=== PATIENT | male | born 1990 | race Two or more races ===

== ENCOUNTER 2024-03-10 12:25 | Inpatient (IN) | payer OTHER ==
[~2024-03-10] VITALS: Ht 177.8 cm; Wt 138.5 kg
--- NOTE | 2024-03-10 13:48 | ED.PDOC ---
General HPI Comments A 33Y M PRESENTS TO ED FOR CHIEF COMPLAINT RT TESTICLE PAIN X2 MONTHS WITH ENLARGEMENT. PT STATES HE STARTED HAVING RIGHT TESTICLE SWELLING AND ENLARGEMENT 2 MONTHS AGO. IT STARTED A SMALL LUMP ON RIGHT TESTICLE REGION AND BECAME BIGGER DAY AND DAY. TODAY, HE C/O RIGHT TESTICLE PAIN AND SWELLING INCREASED. WALKING INCREASES RIGHT TESTICLE PAIN. PT DENIES FEVER, URINARY SYMPTOMS, CHEST PAIN, AND SOB, NAUSEA, VOMITING AND OTHER COMPLAINTS. NO OTHER SYMPTOMS REPORTED. PATIENT IS ALERT, ORIENTED X 4, AND HAS STEADY GAIT. Chief Complaint: Testicle Pain Time Seen by MD: :24 Primary Care Provider: NONE Reviewed notes: Nurses Notes, Medications, Allergies Allergies: Coded Allergies: NO KNOWN ALLERGIES (Unverified , 03/10/24) Information Source: Patient Mode of Arrival: Ambulatory Severity: Moderate Inability to void: None Timing: Months Duration: Since onset Prehospital treatment: None Onset: Spontaneous Symptoms: None History of: None Location: None Location male: R Scrotum Penile discharge: None Modifying factors: None associated signs and symptoms: None Past Medical History PAST MEDICAL HISTORY: Denies Surgical History: Denies all surgeries Family History Family History: Unknown Social History Smoker: Non-Smoker Alcohol: Denies ETOH Use Drugs: Denies Drug Use Lives In: Home Constitutional: denies: chills, diaphoresis, fatigue, fever, malaise, sweats, weakness, others EENTM: denies: blurred vision, double vision, ear bleeding, ear discharge, ear drainage, ear pain, ear ringing, eye pain, eye redness, hearing loss, mouth pain, mouth swelling, nasal discharge, nose bleeding, nose congestion, nose pain, photophobia, tearing, throat pain, throat swelling, voice changes, others Respiratory: denies: cough, hemoptysis, orthopnea, SOB at rest, shortness of breath, SOB with excertion, stridor, wheezing, others Cardiovascular: denies: chest pain, dizzy spells, diaphoresis, Dyspnea on exertion, edema, irregular heart beat, left arm pain, lightheadedness, palpitations, PND, syncope, others Gastrointestinal: denies: abdomen distended, abdominal pain, blood streaked bowels, constipated, diarrhea, dysphagia, difficulty swallowing, hematemesis, melena, nausea, poor appetite, poor fluid intake, rectal bleeding, rectal pain, vomiting, others Genitourinary: reports: testicle pain, testicle swelling; denies: burning, dysuria, flank pain, frequency, hematuria, incontinence, penile discharge, penile sore, pain, urgency, others Neurological: denies: dizziness, fainting, headache, left sided numbness, left sided weakness, numbness, paresthesia, pre-existing deficit, right sided numbness, right sided weakness, seizure, speech problems, tingling, tremors, weakness, others Musculoskeletal: denies: back pain, gout, joint pain, joint swelling, muscle pain, muscle stiffness, neck pain, others Integumetry: reports: lumps (RIGHT TESTICLE ); denies: bruises, change in color, change in hair/nails, dryness, laceration, lesions, rash, wounds, others Allergic/Immunocompromised: denies: Difficulty Healing, Frequent Infections, Hives, Itching, others Hematologic/Lymphatic: denies: anemia, blood clots, easy bleeding, easy bruising, swollen glands, others Endocrine: denies: excessive hunger, excessive sweating, excessive thirst, excessive urination, flushing, intolerance to cold, intolerance to heat, unexplained weight gain, unexplained weight loss, others Psychiatric: denies: anxiety, bipolar disorder, depression, hopeless, panic disorder, schizophrenia, sleepless, suicidal, others All Other Systems: Reviewed and Negative Physical Exam General Appearance: No Apparent Distress, Obese HEENT: Normal ENT Inspection, PERRL/EOMI, Pharynx Normal, TMs Normal Neck: Full Range of Motion, Non-Tender, Normal, Normal Inspection Respiratory: Chest Non-Tender, Lungs Clear, No Accessory Muscle Use, No Respiratory Distress, Normal Breath Sounds Cardiovascular: No Edema, No JVD, No Murmur, No Gallop, Normal Peripheral Pulses, Regular Rate/Rhythm Breast Exam: Deferred Gastrointestinal: No Organomegaly, Non Tender, No Pulsatile Mass, Normal Bowel Sounds, Soft Genitalia: Scrotum (TENDERNESS AND SWELLING ON RIGHT SCROTUM. ), Testicle (TENDERNESS, SWELLING AND HARDNESS ON RIGHT TESTICLE, NO TESTICLE TORSION, BILATERAL TESTICLE DESCENDING. +RIGHT TESTICLE MASS. ) Pelvic: Normal External Exam Rectal: Deferred Extremities: No calf tenderness, Normal capillary refill, Normal inspection, Normal range of motion, Non-tender, No pedal edema Musculoskeletal : Apperance: Normal Neurologic: Alert, sales and marketing representative II-XII nml as Tested, No Motor Deficits, Normal Affect, Normal Mood, No Sensory Deficits Cerebellar Function: Normal Reflexes: Normal Skin: Dry, Normal Color, Warm Peripheral Pulses: 2+ carotid (R), 2+ carotid (L) Lymphatic: No Adenopathy Was a procedure done? Was a procedure done?: No Differential Diagnosis Kidney stone (Female): N/A Kidney stone (Male): N/A Penile/Scrotal: Epidiymitis, Hydrocele, Testicular Torsion, Urolithiasis, Other (RIGHT TESTICLE MASS) Urinary Problem (Male): N/A Urinary Problem (Female): N/A X-Ray, Labs, Meds, VS Vital Signs Date Time Temp Pulse Resp B/P (MAP) Pulse Ox O2 Delivery O2 Flow Rate FiO2 03/10/24 13:36 98.4 102 16 138/97 (111) 98 98.4 03/10/24 13:36 102 16 98 Room Air 03/10/24 12:46 98.4 102 16 138/97 (111) 98 Lab Test 03/10/24 15:37 Range/Units White Blood Count 13.9 H 4.4-10.8 10^3/uL Red Blood Count 5.41 4.5-5.90 10^6/uL Hemoglobin 16.9 13.5-17.5 g/dL Hematocrit 48.4 41.0-53.0 % Mean Corpuscular Volume 89.5 80.0-100.0 fL Mean Corpuscular Hemoglobin 31.2 28.0-32.0 pg Mean Corpuscular Hemoglobin Concent 34.8 32.0-36.0 g/dL Red Cell Distribution Width 13.3 11.8-14.3 % Platelet Count 335 140-450 10^3/uL Mean Platelet Volume 8.2 6.9-10.8 fL Neutrophils (%) (Auto) 81.8 H 37.0-80.0 % Lymphocytes (%) (Auto) 13.4 10.0-50.0 % Monocytes (%) (Auto) 4.4 0.0-12.0 % Eosinophils (%) (Auto) 0.1 0.0-7.0 % Basophils (%) (Auto) 0.3 0.0-2.0 % Neutrophils # (Auto) 11.4 H 1.6-8.6 10 ^3/uL Lymphocytes # (Auto) 1.9 0.4-5.4 10 ^3/uL Monocytes # (Auto) 0.6 0-1.3 10 ^3/uL Eosinophils # (Auto) 0 0-0.8 10 ^3/uL Basophils # (Auto) 0 0-0.2 10 ^3/uL Nucleated Red Blood Cells 0.1 % Sodium Level 138 136-145 mmol/L Potassium Level 3.6 3.5-5.1 mmol/L Chloride Level 104 98-107 mmol/L Carbon Dioxide Level 28 20-31 mmol/L Anion Gap 6 5-15 Blood Urea Nitrogen 10 9-23 mg/dL Creatinine 1.01 0.700-1.30 mg/dL Glomerular Filtration Rate Calc 99 >90 mL/min BUN/Creatinine Ratio 9.9 L 10.0-20.0 Serum Glucose 121 H 74-106 mg/dL Calcium Level 9.6 8.7-10.4 mg/dL C-Reactive Protein High Sensitivity 2.03 H <1.0 mg/dL Tumor Marker Alpha Fetoprotein Pending Beta HCG, Quantitative Pending Current Medications Medications (Trade) Dose Ordered Sig/Domonique Route Start Time Stop Time Status Last Admin Sodium Chloride 1,000 ml @ 1,000 mls/hr Q1H ONCE IV 03/10/24 15:30 03/10/24 16:29 DC 03/10/24 15:46 Ketorolac Tromethamine (Toradol Injection) 30 mg ONCE ONCE IV 03/10/24 15:30 03/10/24 15:31 MT 03/10/24 17:19 [place] [id number] Ph: [phone] DIAGNOSTIC IMAGING Diagnostic Imaging Report : [id number] Signed PATIENT: CHICHI BAILEY ACCT: [id number] UNIT: [id number] : 1990 LOC: ER ROOM / BED: / AGE / SEX: 33 / M ADM STATUS: REG ER SERVICE [id number] ORDERING PHYSICIAN: BETTINA VILLA PROCEDURE(s): TESUS - TESTICULAR ULTRASOUND REASON: RIGHT TESTICLE SWELLING X 2 MONTHS ORDER NUMBER(s): [id number], ACCESSION NUMBER(s): [id number] Procedure: US TESTICULAR ULTRASOUND Study Date and Requested Time: 03/10/2024 02:01 PM History: RIGHT TESTICLE SWELLING X 2 MONTHS Comparison: None Technique: Multiple high-resolution grayscale images of scrotal contents obtained. Color and spectral Doppler used for evaluation of testicular blood flow. Findings: No normal right testicular or epididymal tissue is noted. Over the expected area of the right testicle , there is a 6.1 x 4.5 x 6.3 cm heterogeneous mainly solid structure with internal cystic areas which demonstrates some vascularity. Left testicle measures 3.3 x 2.1 x 2.4 cm with homogenous echotexture and normal contours. Multiple punctate echogenic foci are noted within the left testicle. Left epididymal head measures 1.4 cm and is within normal limits. Normal left testicular and epididymal color Doppler flow. No evidence of hydrocele. Impression: No normal right epididymal or testicular tissue is noted. Over the expected area of the right testicle , there is a 6.1 x 4.5 x 6.3 cm heterogeneous mainly solid structure with internal cystic areas which demonstrates some vascularity concerning for possible mass. Left testicular microlithiasis. ATED BY: DARA NUNES DO DICTATED DATE/TIME: 03/10/241444 SIGNED BY: DARA NUNES DO SIGNED DATE/TIME: 03/10/241444 CC: X-Ray, Labs, Meds, VS Comment COURSE: EXTERNAL MEDICAL RECORDS REVIEWED: [NONE] INDEPENDENT HISTORIANS: [NONE] SOCIAL DETERMINANTS OF HEALTH: [NONE] LABS ORDERED: CBC, BMP, CRP, UA REVIEWED AND INTERPRETED RESULTS: NORMAL IMAGING ORDERED: TESTICULAR U/S U/S INTERPRETED BY ME. PT HAS RT TESTICULAR MASS. TREATMENTS ORDERED: O.9 NS AND TORADOL 30MG IVP PROCEDURES PERFORMED: NONE CRITICAL CARE TIME: NONE I HAVE DISCUSSED THE PATIENT WITH THE ATTENDING PHYSICIAN DR. DON OLIVEROS AND SHE AGREES WITH THE PATIENT'S PLAN OF CARE. GIVEN THE HISTORY AND PRESENT ILLNESS OF THE PATIENT, AFTER REVIEWING IMAGING AND COURSE OF TREATMENT AD MINISTERED DURING THEIR ED VISIT WILL ADMIT PATIENT FOR FURTHER MONITORING OF TESTICULAR MASS AND PLACE UROLOGY CONSULT. Time of 1ST Reevaluation: 13:54 Reevaluation 1ST: Unchanged Patient Education/Counseling: Diagnosis, Treatment Family Education/Counseling: Diagnosis, Treatment Departure 1 Departure Time of Disposition: 15:16 Impression: Primary Impression: Mass of right testicle Additional Impression: Testicular microlithiasis Disposition: ADMITTED INPATIENT Condition: Serious Critical Care Note Critical Care Time?: No Stability Stability form required: Yes Unstable for transfer: Requires medication, ED Physician Assesment, Possible rapid decline Heart Score Heart Score: Heart Score Response (Comments) Value History N/A 0 EKG N/A 0 Age N/A 0 Risk Factors N/A 0 Troponin N/A 0 Total 0 I personally scribed for BETTINA VILLA PA ([email or web address]) on 03/10/24 at 13:48. Electronically submitted by Carla Donald ([email or web address]). I personally scribed for BETTINA VILLA PA ([email or web address]) on 03/10/24 at 14:57. Electronically submitted by Carla Donald ([email or web address]). I personally scribed for PARVIN VILLAA PA ([email or web address]) on 03/10/24 at 15:00. Electronically submitted by Carla Donald ([email or web address]). I personally scribed for PARVIN VILLAA PA ([email or web address]) on 03/10/24 at 15:01. Electronically submitted by Carla Donald ([email or web address]). I personally scribed for PARVIN VILLAA PA ([email or web address]) on 03/10/24 at 15:18. Electronically submitted by Carla Donald ([email or web address]). I personally scribed for ALLENPARVIN EwingA PA ([email or web address]) on 03/10/24 at 17:36. Electronically submitted by Carla Donald ([email or web address]). BETTINA VILLA PA Mar 10, 2024 13:48
--- NOTE | 2024-03-10 14:48 | DVH ---
Procedure: US TESTICULAR ULTRASOUND Study Date and Requested Time: 03/10/2024 02:01 PM History: RIGHT TESTICLE SWELLING X 2 MONTHS Comparison: None Technique: Multiple high-resolution grayscale images of scrotal contents obtained. Color and spectral Doppler used for evaluation of testicular blood flow. Findings: No normal right testicular or epididymal tissue is noted. Over the expected area of the right testicl e , there is a 6.1 x 4.5 x 6.3 cm heterogeneous mainly solid structure with internal cystic areas whi ch demonstrates some vascularity. Left testicle measures 3.3 x 2.1 x 2.4 cm with homogenous echotexture and normal contours. Multiple p unctate echogenic foci are noted within the left testicle. Left epididymal head measures 1.4 cm and i s within normal limits. Normal left testicular and epididymal color Doppler flow. No evidence of hydrocele. Impression: No normal right epididymal or testicular tissue is noted. Over the expected area of the right testicle , there is a 6.1 x 4.5 x 6.3 cm heterogeneous mainly indra id structure with internal cystic areas which demonstrates some vascularity concerning for possible m ass. Left testicular microlithiasis.
[2024-03-10] MEDS: SODIUM CHLORIDE 0.9% 1,000 ML IV ONE (15:46)
[2024-03-10 15:55] LABS: Basophils # (auto) 0 10 ^3/uL (0-0.2); Basophils % (auto) 0.3 % (0.0-2.0); Eosinophils # (auto) 0 10 ^3/uL (0-0.8); Eosinophils % (auto) 0.1 % (0.0-7.0); Hematocrit 48.4 % (41.0-53.0); Hemoglobin 16.9 g/dL (13.5-17.5); Lymphocytes # (auto) 1.9 10 ^3/uL (0.4-5.4); Lymphocytes % (auto) 13.4 % (10.0-50.0); Mean Corpuscular Hemoglobin 31.2 pg (28.0-32.0); Mean Corpuscular Hgb Conc. 34.8 g/dL (32.0-36.0); Mean Corpuscular Volume 89.5 fL (80.0-100.0); Monocytes # (auto) 0.6 10 ^3/uL (0-1.3); Monocytes % (auto) 4.4 % (0.0-12.0); Neutrophils # (auto) 11.4 10 ^3/uL (1.6-8.6); Neutrophils % (auto) 81.8 % (37.0-80.0); Nucleated Red Blood Cells % 0.1 %; Platelet Count (auto) 335 10^3/uL (140-450); Red Blood Cells 5.41 10^6/uL (4.5-5.90); Red Cell Distribution Width 13.3 % (11.8-14.3); White Blood Cell 13.9 10^3/uL (4.4-10.8)
[2024-03-10 16:04] LABS: Chloride 104 mmol/L (98-107); Potassium 3.6 mmol/L (3.5-5.1); Sodium 138 mmol/L (136-145)
[2024-03-10 16:05] LABS: Anion Gap 6 (5-15); Carbon Dioxide 28 mmol/L (20-31)
[2024-03-10 16:06] LABS: Calcium 9.6 mg/dL (8.7-10.4)
[2024-03-10 16:10] LABS: BUN/Creatinine Ratio 9.9 (10.0-20.0); Blood Urea Nitrogen 10 mg/dL (9-23)
[2024-03-10 16:22] LABS: CRP High Sensitivity 2.03 mg/dL (<1.0); Glucose 121 mg/dL (74-106)
--- NOTE | 2024-03-10 16:29 | DVHHP2 ---
History of Present Illness Reason for Visit: Right testicular pain History of Present Illness Giovanni Sun is a 33-year-old male with no past medical history who presents to the ED today for testicular pain x 2 months. Patient reports that it started 2 months with a hard spot on his testicle and it grew rapidly from there. Patient states that this pain is an 8/10 and it is throbbing and sharp in nature and currently radiates to his abdomen.. Patient reports that he does not see a PCP. He denies fever, chills, chest pain, shortness of breath dysuria, frequency, hematuria, burning, foul odor, nausea, vomiting, and diarrhea. Past Surgical History: None Family History: None Smoke: <1 pack per day ALCOHOL: rare Drugs: Marijuana Lives: with Family Domestic Violence: Neg Review of Systems Constitutional: No: Fever, Chills, Sweats, Weakness, Malaise, Other Eyes: No: Pain, Vision change, Conjunctivae inflammation, Eyelid inflammation, Other, Redness ENT: No: Ear pain, Ear discharge, Nose pain, Nose discharge, Nose congestion, Mouth pain, Mouth swelling, Throat pain, Throat swelling, Other Respiratory: No: Cough, Dry, Shortness of breath, SOB with excertion, Wheezing, Hemoptysis, Pleuritic Pain, Sputum, Wheezing, Other Cardiovascular: No: Chest Pain, Palpitations, Orthopnea, Paroxysmal Noc. Dyspnea, Edema, Lt Headedness, Other Gastrointestinal: No: Nausea, Vomiting, Abdominal Pain, Diarrhea, Constipation, Melena, Hematochezia, Other Genitourinary: No Dysuria, No Frequency, No Incontinence, No Hematuria, No Retention; Other (Right testicular pain) Musculoskeletal: No: other, neck pain, shoulder pain, arm pain, back pain, hand pain, leg pain, foot pain Skin: No: Rash, Lesions, Jaundice, Bruising, Other Neurological: No: Weakness, Numbness, Incoordination, Change in speech, Confusion, Seizures, Other Allergies: Coded Allergies: NO KNOWN ALLERGIES (Unverified , 03/10/24) Exam Vital Signs Vital Signs Date Time Temp Pulse Resp B/P (MAP) Pulse Ox O2 Delivery O2 Flow Rate FiO2 03/10/24 13:36 98.4 102 16 138/97 (111) 98 98.4 03/10/24 13:36 Room Air Exam Patient's right testicle about the size of a ione General Appearance: Alert, Oriented X3, Cooperative, mild distress HEENT: Atraumatic, PERRLA, EOMI, Mucous membr. moist/pink Respiratory: Clear to auscultation, Normal air movement Cardiovascular: Regular rate, Normal S1, Normal S2, No murmurs Abdominal: Normal bowel sounds, Soft, No tenderness, No hepatospenomegaly, No masses Extremities: No clubbing, No cyanosis, No edema, Normal pulses, No tenderness/swelling Skin: No rashes, No breakdown, No significant lesion Neuro: Normal gait, Normal speech, Strength at 5/5 X4 ext, Normal tone, Sensation intact Psych/Mental Status: Mental status NL, Mood NL Labs/Xrays Labs Test 03/10/24 15:37 Range/Units White Blood Count 13.9 H 4.4-10.8 10^3/uL Red Blood Count 5.41 4.5-5.90 10^6/uL Hemoglobin 16.9 13.5-17.5 g/dL Hematocrit 48.4 41.0-53.0 % Mean Corpuscular Volume 89.5 80.0-100.0 fL Mean Corpuscular Hemoglobin 31.2 28.0-32.0 pg Mean Corpuscular Hemoglobin Concent 34.8 32.0-36.0 g/dL Red Cell Distribution Width 13.3 11.8-14.3 % Platelet Count 335 140-450 10^3/uL Mean Platelet Volume 8.2 6.9-10.8 fL Neutrophils (%) (Auto) 81.8 H 37.0-80.0 % Lymphocytes (%) (Auto) 13.4 10.0-50.0 % Monocytes (%) (Auto) 4.4 0.0-12.0 % Eosinophils (%) (Auto) 0.1 0.0-7.0 % Basophils (%) (Auto) 0.3 0.0-2.0 % Neutrophils # (Auto) 11.4 H 1.6-8.6 10 ^3/uL Lymphocytes # (Auto) 1.9 0.4-5.4 10 ^3/uL Monocytes # (Auto) 0.6 0-1.3 10 ^3/uL Eosinophils # (Auto) 0 0-0.8 10 ^3/uL Basophils # (Auto) 0 0-0.2 10 ^3/uL Nucleated Red Blood Cells 0.1 % Sodium Level 138 136-145 mmol/L Potassium Level 3.6 3.5-5.1 mmol/L Chloride Level 104 98-107 mmol/L Carbon Dioxide Level 28 20-31 mmol/L Anion Gap 6 5-15 Blood Urea Nitrogen 10 9-23 mg/dL Creatinine 1.01 0.700-1.30 mg/dL Glomerular Filtration Rate Calc 99 >90 mL/min BUN/Creatinine Ratio 9.9 L 10.0-20.0 Serum Glucose 121 H 74-106 mg/dL Calcium Level 9.6 8.7-10.4 mg/dL C-Reactive Protein High Sensitivity 2.03 H <1.0 mg/dL Procedure: US TESTICULAR ULTRASOUND Study Date and Requested Time: 03/10/2024 02:01 PM History: RIGHT TESTICLE SWELLING X 2 MONTHS Findings: No normal right testicular or epididymal tissue is noted. Over the expected area of the right testicle , there is a 6.1 x 4.5 x 6.3 cm heterogeneous mainly solid structure with internal cystic areas which demonstrates some vascularity. Left testicle measures 3.3 x 2.1 x 2.4 cm with homogenous echotexture and normal contours. Multiple punctate echogenic foci are noted within the left testicle. Left epididymal head measures 1.4 cm and is within normal limits. Normal left testicular and epididymal color Doppler flow. No evidence of hydroc sharla. Impression: No normal right epididymal or testicular tissue is noted. Over the expected area of the right testicle , there is a 6.1 x 4.5 x 6.3 cm heterogeneous mainly solid structure with internal cystic areas which demonstrates some vascularity concerning for possible mass. Left testicular microlithiasis. Exam: CT CT AB PEL WO CON-NO ORAL OR IV History: abd pain Comparison Study: None available at time of dictation. TECHNIQUE: Multidetector CT of the abdomen was performed from lung bases to pubic symphysis. Imaging was performed without IV contrast. Axial, coronal and sagittal multiplanar reformats were obtained from the axial data set by the technologist. Radiation Dose Information: CT Dose: CTDI volume is 26.77 mGy. Dose-length product is 1619.61 mGy*cm FINDINGS: Evaluation of solid organs is limited due to lack of intravenous contrast use. Findings: Lung Bases: No acute or significant lung base finding. Normal heart size. No pleural or pericardial effusion. Liver: The liver is normal in size. No focal lesions. CT findings consistent with hepatic steatosis Gallbladder and Biliary Tree: Noncalcified gallstones in the gallbladder. Spleen: Unremarkable Pancreas: The pancreas is grossly normal in appearance. Adrenal Glands: Unremarkable Kidneys: Punctate nonobstructing calculus left kidney Bladder: Grossly unremarkable for degree of distention. Bowel: The stomach is grossly normal in appearance. Small bowel and colon are normal in caliber and distribution. The appendix is not visualized; however, no secondary findings of acute appendicitis identified. Ascites: Absent Lymphadenopathy: No mesenteric, retroperitoneal or periportal lymphadenopathy. Abdominal Wall and Mesentery: Unremarkable. Vasculature: The visualized abdominal aorta is normal in size and caliber. Evaluation of abdominal and pelvic vessels is limited due to lack of intravenous contrast. Pelvic Organs: Unremarkable Musculoskeletal: No aggressive focal bony lesions, acute fractures or dislocation. Soft tissues: Unremarkable IMPRESSION: 1. Findings suggesting hepatic steatosis. 2. Multiple noncalcified gallstones 3. Punctate nonobstructing calculus left kidney 4. No free air no free fluid 5. No findings of bowel obstruction. Assessment/Plan Assessment/Plan Assessment/plan: Right testicular mass Left testicular microlithiasis urology cx pain management ua labs am labs ct a/p IV abx Obesity Discussed lifestyle modifications, diet, and exercise Hepatic steatosis Noncalcified gallstones Left kidney punctate nonobstructing calculus f/u outpatient with pcp FEN/PPX IVf NPO PUD ppx not indicated no hx of GERD hold DVT ppx for poss sx Discussed plan of care with patient and nurse Admit to med surg Plan discussed with: Patient My Orders Orders - KATHY GUO Procedure Category Date Status Time * Urology Consult CONS 03/10/24 Transmitted 16:24 Date of Service: Mar 10, 2024 Billing Provider: KATHY GUO Common Visit Codes: [id number] INP/OBS CARE (MOD) KATHY GUO Mar 10, 2024 16:29
[2024-03-10] MEDS ORDERED: MORPHINE SULFATE INJ 2 MG/ml SYRG IV PRN (16:45)
[2024-03-10] MEDS ORDERED: ACETAMINOPHEN 325 MG TAB PO PRN (16:45)
[2024-03-10] MEDS ORDERED: HYDROcodone-ACET 5/325MG TAB PO PRN (16:45)
[2024-03-10] MEDS ORDERED: DOCUSATE SOD 100 MG CAP PO PRN (16:45)
[2024-03-10] MEDS: SODIUM CHLORIDE 0.9% 1,000 ML IV SCH (17:19)
[2024-03-10] MEDS: KETOROLAC TROMETH 30 MG/ML 1ML VIAL IV ONE (17:19)
--- NOTE | 2024-03-10 17:59 | DVHINCON2 ---
Date of service: Mar 10, 2024 Referring Physician ER Reason for Consultation Right testicular mass and testicular pain History of Present Illness 33Y M PRESENTS TO ED FOR CHIEF COMPLAINT RT TESTICLE PAIN X2 MONTHS WITH ENLARGEMENT. PT STATES HE STARTED HAVING RIGHT TESTICLE SWELLING AND ENLARGEMENT 2 MONTHS AGO. IT STARTED A SMALL LUMP ON RIGHT TESTICLE REGION AND BECAME BIGGER DAY AND DAY. TODAY, HE C/O RIGHT TESTICLE PAIN AND SWELLING INCREASED. WALKING INCREASES RIGHT TESTICLE PAIN. PT DENIES FEVER, URINARY SYMPTOMS, CHEST PAIN, AND SOB, NAUSEA, VOMITING AND OTHER COMPLAINTS. NO OTHER SYMPTOMS REPORTED. PATIENT IS ALERT, ORIENTED X 4, AND HAS STEADY GAIT. Chief Complaint: Testicle Pain Primary Care Provider: NONE Reviewed notes: Nurses Notes, Medications, Allergies Allergies: Coded Allergies: NO KNOWN ALLERGIES (Unverified , 03/10/24) Information Source: Patient Mode of Arrival: Ambulatory Severity: Moderate Inability to void: None Timing: Months Duration: Since onset Prehospital treatment: None Onset: Spontaneous Symptoms: None History of: None Location: None Location male: R Scrotum Penile discharge: None Modifying factors: None associated signs and symptoms: None Past Medical History Denies Past Surgical History Denies all surgeries Allergies: Coded Allergies: NO KNOWN ALLERGIES (Unverified , 03/10/24) Current Medications Current Medications Medications (Trade) Dose Ordered Sig/[place] Route PRN Reason Start Time Stop Time Status Last Admin Sodium Chloride 1,000 ml @ 100 mls/hr Q10H IV 03/10/24 16:45 03/10/24 17:19 Acetaminophen/ Hydrocodone Bitart ([place] 5/325MG Tab) 1 tab Q4HP PRN PO MODERATE PAIN (4-6 PAIN SCALE) 03/10/24 16:45 Ondansetron HCl (Zofran) 4 mg Q4HP PRN IV NAUSEA / VOMITING 03/10/24 16:45 Docusate Sodium (Colace Capsule) 100 mg BIDPRN PRN PO FOR CONSTIPATION 03/10/24 16:45 Acetaminophen (Tylenol Tablet) 650 mg Q6HP PRN PO PAIN SCALE 1-3 OR TEMP>100.4 03/10/24 16:45 Morphine Sulfate 2 mg Q4HPRN PRN IV SEVERE PAIN (7-10 PAIN SCALE) 03/10/24 16:45 Ceftriaxone Sodium 50 ml @ 100 mls/hr DAILY@09 IV 03/11/24 09:00 Review of Systems Constitutional: denies: chills, diaphoresis, fatigue, fever, malaise, sweats, weakness, others EENTM: denies: blurred vision, double vision, ear bleeding, ear discharge, ear drainage, ear pain, ear ringing, eye pain, eye redness, hearing loss, mouth pain, mouth swelling, nasal discharge, nose bleeding, nose congestion, nose pain, photophobia, tearing, throat pain, throat swelling, voice changes, others Respiratory: denies: cough, hemoptysis, orthopnea, SOB at rest, shortness of breath, SOB with excertion, stridor, wheezing, others Cardiovascular: denies: chest pain, dizzy spells, diaphoresis, Dyspnea on exertion, edema, irregular heart beat, left arm pain, lightheadedness, palpitations, PND, syncope, others Gastrointestinal: denies: abdomen distended, abdominal pain, blood streaked bowels, constipated, diarrhea, dysphagia, difficulty swallowing, hematemesis, melena, nausea, poor appetite, poor fluid intake, rectal bleeding, rectal pain, vomiting, others Genitourinary: reports: testicle pain, testicle swelling; denies: burning, dysuria, flank pain, frequency, hematuria, incontinence, penile discharge, penile sore, pain, urgency, others Neurological: denies: dizziness, fainting, headache, left sided numbness, left sided weakness, numbness, paresthesia, pre-existing deficit, right sided numbness, right sided weakness, seizure, speech problems, tingling, tremors, weakness, others Musculoskeletal: denies: back pain, gout, joint pain, joint swelling, muscle pain, muscle stiffness, neck pain, others Integumetry: reports: lumps (RIGHT TESTICLE ); denies: bruises, change in color, change in hair/nails, dryness, laceration, lesions, rash, wounds, others Allergic/Immunocompromised: denies: Difficulty Healing, Frequent Infections, Hives, Itching, others Hematologic/Lymphatic: denies: anemia, blood clots, easy bleeding, easy bruising, swollen glands, others Endocrine: denies: excessive hunger, excessive sweating, excessive thirst, excessive urination, flushing, intolerance to cold, intolerance to heat, unexplained weight gain, unexplained weight loss, others Psychiatric: denies: anxiety, bipolar disorder, depression, hopeless, panic disorder, schizophrenia, sleepless, suicidal, others All Other Systems: Reviewed and Negative Vital Signs Vital Signs Date Time Temp Pulse Resp B/P (MAP) Pulse Ox O2 Delivery O2 Flow Rate FiO2 03/10/24 13:36 98.4 102 16 138/97 (111) 98 98.4 03/10/24 13:36 Room Air Physical Exam General Appearance: No Apparent Distress, Obese HEENT: Normal ENT Inspection, PERRL/EOMI, Pharynx Normal, TMs Normal Neck: Full Range of Motion, Non-Tender, Normal, Normal Inspection Respiratory: Chest Non-Tender, Lungs Clear, No Accessory Muscle Use, No Respiratory Distress, Normal Breath Sounds Cardiovascular: No Edema, No JVD, No Murmur, No Gallop, Normal Peripheral Pulses, Regular Rate/Rhythm Breast Exam: Deferred Gastrointestinal: No Organomegaly, Non Tender, No Pulsatile Mass, Normal Bowel Sounds, Soft Genitalia: Scrotum (TENDERNESS AND SWELLING ON RIGHT SCROTUM. ), Testicle (TENDERNESS, SWELLING AND HARDNESS ON RIGHT TESTICLE, NO TESTICLE TORSION, BILATERAL TESTICLE DESCENDING. +RIGHT TESTICLE MASS. ) Extremities: No calf tenderness, Normal capillary refill, Normal inspection, Normal range of motion, Non-tender, No pedal edema Musculoskeletal : Apperance: Normal Neurologic: Alert, computer technologist II-XII nml as Tested, No Motor Deficits, Normal Affect, Normal Mood, No Sensory Deficits Cerebellar Function: Normal Reflexes: Normal Skin: Dry, Normal Color, Warm Peripheral Pulses: 2+ carotid (R), 2+ carotid (L) Lymphatic: No Adenopathy Labs/Diagnostic Data Labs Test 03/10/24 15:37 Range/Units White Blood Count 13.9 H 4.4-10.8 10^3/uL Red Blood Count 5.41 4.5-5.90 10^6/uL Hemoglobin 16.9 13.5-17.5 g/dL Hematocrit 48.4 41.0-53.0 % Mean Corpuscular Volume 89.5 80.0-100.0 fL Mean Corpuscular Hemoglobin 31.2 28.0-32.0 pg Mean Corpuscular Hemoglobin Concent 34.8 32.0-36.0 g/dL Red Cell Distribution Width 13.3 11.8-14.3 % Platelet Count 335 140-450 10^3/uL Mean Platelet Volume 8.2 6.9-10.8 fL Neutrophils (%) (Auto) 81.8 H 37.0-80.0 % Lymphocytes (%) (Auto) 13.4 10.0-50.0 % Monocytes (%) (Auto) 4.4 0.0-12.0 % Eosinophils (%) (Auto) 0.1 0.0-7.0 % Basophils (%) (Auto) 0.3 0.0-2.0 % Neutrophils # (Auto) 11.4 H 1.6-8.6 10 ^3/uL Lymphocytes # (Auto) 1.9 0.4-5.4 10 ^3/uL Monocytes # (Auto) 0.6 0-1.3 10 ^3/uL Eosinophils # (Auto) 0 0-0.8 10 ^3/uL Basophils # (Auto) 0 0-0.2 10 ^3/uL Nucleated Red Blood Cells 0.1 % Sodium Level 138 136-145 mmol/L Potassium Level 3.6 3.5-5.1 mmol/L Chloride Level 104 98-107 mmol/L Carbon Dioxide Level 28 20-31 mmol/L Anion Gap 6 5-15 Blood Urea Nitrogen 10 9-23 mg/dL Creatinine 1.01 0.700-1.30 mg/dL Glomerular Filtration Rate Calc 99 >90 mL/min BUN/Creatinine Ratio 9.9 L 10.0-20.0 Serum Glucose 121 H 74-106 mg/dL Calcium Level 9.6 8.7-10.4 mg/dL C-Reactive Protein High Sensitivity 2.03 H <1.0 mg/dL PATIENT: CHICHI BAILEY ACCT: [id number] UNIT: [id number] : 1990 LOC: ER ROOM / BED: / AGE / SEX: 33 / M ADM STATUS: REG ER SERVICE [id number] ORDERING PHYSICIAN: BETTINA VILLA PROCEDURE(s): TESUS - TESTICULAR ULTRASOUND REASON: RIGHT TESTICLE SWELLING X 2 MONTHS ORDER NUMBER(s): [id number], ACCESSION NUMBER(s): [id number] Procedure: US TESTICULAR ULTRASOUND Study Date and Requested Time: 03/10/2024 02:01 PM History: RIGHT TESTICLE SWELLING X 2 MONTHS Comparison: None Technique: Multiple high-resolution grayscale images of scrotal contents obtained. Color and spectral Doppler used for evaluation of testicular blood flow. Findings: No normal right testicular or epididymal tissue is noted. Over the expected area of the right testicle , there is a 6.1 x 4.5 x 6.3 cm heterogeneous mainly solid structure with internal cystic areas which demonstrates some vascularity. Left testicle measures 3.3 x 2.1 x 2.4 cm with homogenous echotexture and normal contours. Multiple punctate echogenic foci are noted within the left testicle. Left epididymal head measures 1.4 cm and is within normal limits. Normal left testicular and epididymal color Doppler flow. No evidence of hydrocele. Impression: No normal right epididymal or testicular tissue is noted. Over the expected area of the right testicle , there is a 6.1 x 4.5 x 6.3 cm heterogeneous mainly solid structure with internal cystic areas which demonstrates some vascularity concerning for possible mass. Left testicular microlithiasis. ATED BY: DARA NUNES DO DICTATED DATE/TIME: 03/10/241444 SIGNED BY: DARA NNUES DO SIGNED DATE/TIME: 03/10/241444 Assessment Right testicular mass suspicious for malignancy Plan/Recommendation We will obtain serum tumor markers Proceed with right radical orchiectomy as soon as possible 0700 03/11/24. NPO after 11 PM Plan discussed with: Patient, Other CASSIE GUADALUPE MD Mar 10, 2024 17:59
[2024-03-10 18:42] VITALS: BP 118/75; PULSE 93; RESP 21; TEMP 98.3; O2SAT 96
--- NOTE | 2024-03-10 18:50 | DVH ---
Exam: CT CT AB PEL WO CON-NO ORAL OR IV History: abd pain Comparison Study: None available at time of dictation. TECHNIQUE: Multidetector CT of the abdomen was performed from lung bases to pubic symphysis. Imaging was performed without IV contrast. Axial, coronal and sagittal multiplanar reformats were obtained fr om the axial data set by the technologist. Radiation Dose Information: CT Dose: CTDI volume is 26.77 mGy. Dose-length product is 1619.61 mGy*cm FINDINGS: Evaluation of solid organs is limited due to lack of intravenous contrast use. Findings: Lung Bases: No acute or significant lung base finding. Normal heart size. No pleural or pericardial effusion. Liver: The liver is normal in size. No focal lesions. CT findings consistent with hepatic steatosis Gallbladder and Biliary Tree: Noncalcified gallstones in the gallbladder. Spleen: Unremarkable Pancreas: The pancreas is grossly normal in appearance. Adrenal Glands: Unremarkable Kidneys: Punctate nonobstructing calculus left kidney Bladder: Grossly unremarkable for degree of distention. Bowel: The stomach is grossly normal in appearance. Small bowel and colon are normal in caliber and d istribution. The appendix is not visualized; however, no secondary findings of acute appendicitis id entified. Ascites: Absent Lymphadenopathy: No mesenteric, retroperitoneal or periportal lymphadenopathy. Abdominal Wall and Mesentery: Unremarkable. Vasculature: The visualized abdominal aorta is normal in size and caliber. Evaluation of abdominal a nd pelvic vessels is limited due to lack of intravenous contrast. Pelvic Organs: Unremarkable Musculoskeletal: No aggressive focal bony lesions, acute fractures or dislocation. Soft tissues: Unremarkable IMPRESSION: 1. Findings suggesting hepatic steatosis. 2. Multiple noncalcified gallstones 3. Punctate nonobstructing calculus left kidney 4. No free air no free fluid 5. No findings of bowel obstruction. . Radiation optimization: All CT scans at this facility use at least one of these dose optimization lashonda hniques: automated exposure control mA and/or kV adjustment per patient size (includes targeted exam s where dose is matched to clinical indication) or iterative reconstruction.
[2024-03-10 18:59] LABS: INR 1.01 (0.9-1.15); Prothrombin Time 10.7 sec (9.3-11.8)
[2024-03-10] MEDS: cefTRIAXone 1GM/50ML D5W 50 ML IV ONE (19:04)
[2024-03-10 20:23] LABS: Urine Bacteria None Seen /hpf (None Seen)
[2024-03-10] MEDS: ONDANSETRON HCL 4 MG/2 ML VIAL IV PRN (20:33)
[2024-03-10] MEDS: MORPHINE SULFATE INJ 2 MG/ml SYRG IV PRN (20:41)
[2024-03-10 20:43] LABS: Urine Blood Negative /uL (Negative); Urine Clarity Turbid (Clear); Urine Color Yellow (Yellow); Urine Mucus FEW (None Seen); Urine Protein, UAD TRACE (Negative); Urine Specific Gravity 1.026 (1.001-1.035); Urine Urobilinogen 6 mg/dL (Negative); Urine WBC 4 /hpf (0 - 3)
[2024-03-11] VITALS (7 sets, daily range): BP systolic 121–145; BP diastolic 70–89; PULSE 88–103; RESP 17–20; TEMP 97.8–99.2; O2SAT 93–99
[2024-03-11 07:07] LABS: Basophils # (auto) 0 10 ^3/uL (0-0.2); Basophils % (auto) 0.2 % (0.0-2.0); Eosinophils # (auto) 0 10 ^3/uL (0-0.8); Hematocrit 42.7 % (41.0-53.0); Hemoglobin 14.9 g/dL (13.5-17.5); Lymphocytes # (auto) 2.2 10 ^3/uL (0.4-5.4); Lymphocytes % (auto) 14.8 % (10.0-50.0); Mean Corpuscular Hemoglobin 31.2 pg (28.0-32.0); Mean Corpuscular Volume 89.2 fL (80.0-100.0); Monocytes # (auto) 1.3 10 ^3/uL (0-1.3); Monocytes % (auto) 8.6 % (0.0-12.0); Neutrophils # (auto) 11.4 10 ^3/uL (1.6-8.6); Neutrophils % (auto) 76.4 % (37.0-80.0); Nucleated Red Blood Cells % 0.1 %; Platelet Count (auto) 294 10^3/uL (140-450); Red Blood Cells 4.79 10^6/uL (4.5-5.90); Red Cell Distribution Width 13.3 % (11.8-14.3); White Blood Cell 14.9 10^3/uL (4.4-10.8)
[2024-03-11] MEDS ORDERED: fentaNYL CITRATE 100 MCG/2 ML VL ONE (07:16)
[2024-03-11] MEDS ORDERED: MIDAZOLAM HCL 2MG/2ML 2ml VIAL (1mg/ml) ONE (07:16)
[2024-03-11 07:17] LABS: Alkaline Phosphatase 79 U/L (46-116); Anion Gap 9 (5-15); Aspartate Aminotransferase 30 U/L (13-40); BUN/Creatinine Ratio 9.4 (10.0-20.0); Blood Urea Nitrogen 9 mg/dL (9-23); Calcium 8.9 mg/dL (8.7-10.4); Carbon Dioxide 26 mmol/L (20-31); Chloride 105 mmol/L (98-107); Sodium 140 mmol/L (136-145)
[2024-03-11 07:18] LABS: Bilirubin, Total 1.1 mg/dL (0.2-1.0); Total Protein 6.8 g/dL (5.7-8.2)
[2024-03-11] MEDS ORDERED: ROCURONIUM 10MG/ML 10ML VIAL IV ONE (07:18)
[2024-03-11] MEDS ORDERED: LIDOCAINE HCL 100 MG/5ML (2%) SYRG INJ IV ONE (07:21)
[2024-03-11 07:22] LABS: Alanine Aminotransferase 55 U/L (7-40); Glucose 107 mg/dL (74-106); Potassium 3.5 mmol/L (3.5-5.1)
[2024-03-11] MEDS ORDERED: ONDANSETRON HCL 4 MG/2 ML VIAL ONE (07:39)
[2024-03-11] MEDS ORDERED: METOCLOPRAMIDE HCL 5MG/ml INJ 2ml VIAL ONE (07:39)
[2024-03-11] MEDS ORDERED: DexAMETHasone SOD PHOS 10MG/1ML VIAL INJ ONE (07:39)
[2024-03-11] MEDS: LIDOCAINE W/ EPINEPHRINE 1% 20ML VIAL ONE (08:01)
[2024-03-11] MEDS ORDERED: SUGAMMADEX 200mg/2ml Vial (100MG/ML) IV ONE (08:10)
[2024-03-11] MEDS ORDERED: HYDROmorphone HCL 2 MG/ML VL/or syr ONE (08:11)
--- NOTE | 2024-03-11 08:23 | POSTOP ---
Post-Operative Note Post-Operative Note Preop Diagnosis Right testicular mass Right testicular pain Postop Diagnosis: Same Operation performed Right radical orchiectomy Anesthesia: General Anesthesiologist: Dr. Ac Surgeon Cassie Guadalupe Date 03/11/24 Time 08:22 CASSIE GUADALUPE MD Mar 11, 2024 08:23
[2024-03-11] MEDS ORDERED: HYDROmorphone HCL 2 MG/ML VL/or syr IV PRN ×3 (08:30)
[2024-03-11] MEDS: cefTRIAXone 1GM/50ML D5W 50 ML IV SCH (09:34)
[2024-03-11] MEDS: ceFAZolin 2 GM/D5W100ml 100 ML IV ONE (11:05)
[2024-03-11] MEDS: SUCCINYLCHOLINE CHLORIDE 20 MG/ML 10ML VIAL IV ONE (11:05)
[2024-03-11] MEDS: ONDANSETRON HCL 4 MG/2 ML VIAL IV ONE (11:05)
[2024-03-11] MEDS: LIDOCAINE W/ EPINEPHRINE 2% INJ 20ML VIAL ONE (11:05)
[2024-03-11] MEDS ORDERED: TRAM-626 PO (14:04)
[2024-03-11] MEDS ORDERED: LEVO500T91 PO (14:04)
[2024-03-11] MEDS ORDERED: IBUP-1453 PO (14:04)
--- NOTE | 2024-03-11 14:06 | DVHDS2 ---
Discharge Summary Date of Admission Mar 10, 2024 at 16:41 Date of Discharge: Mar 11, 2024 Labs/Diagnostic Data: Laboratory Results Test 03/11/24 06:12 03/10/24 15:37 03/10/24 15:16 White Blood Count 14.9 10^3/uL (4.4-10.8) Red Blood Count 4.79 10^6/uL (4.5-5.90) Hemoglobin 14.9 g/dL (13.5-17.5) Hematocrit 42.7 % (41.0-53.0) Mean Corpuscular Volume 89.2 fL (80.0-100.0) Mean Corpuscular Hemoglobin 31.2 pg (28.0-32.0) Mean Corpuscular Hemoglobin Concent 35.0 g/dL (32.0-36.0) Red Cell Distribution Width 13.3 % (11.8-14.3) Platelet Count 294 10^3/uL (140-450) Mean Platelet Volume 8.2 fL (6.9-10.8) Neutrophils (%) (Auto) 76.4 % (37.0-80.0) Lymphocytes (%) (Auto) 14.8 % (10.0-50.0) Monocytes (%) (Auto) 8.6 % (0.0-12.0) Eosinophils (%) (Auto) 0.0 % (0.0-7.0) Basophils (%) (Auto) 0.2 % (0.0-2.0) Neutrophils # (Auto) 11.4 10 ^3/uL (1.6-8.6) Lymphocytes # (Auto) 2.2 10 ^3/uL (0.4-5.4) Monocytes # (Auto) 1.3 10 ^3/uL (0-1.3) Eosinophils # (Auto) 0 10 ^3/uL (0-0.8) Basophils # (Auto) 0 10 ^3/uL (0-0.2) Nucleated Red Blood Cells 0.1 % Sodium Level 140 mmol/L (136-145) Potassium Level 3.5 mmol/L (3.5-5.1) Chloride Level 105 mmol/L (98-107) Carbon Dioxide Level 26 mmol/L (20-31) Anion Gap 9 (5-15) Blood Urea Nitrogen 9 mg/dL (9-23) Creatinine 0.96 mg/dL (0.700-1.30) Glomerular Filtration Rate Calc 106 mL/min (>90) BUN/Creatinine Ratio 9.4 (10.0-20.0) Serum Glucose 107 mg/dL (74-106) Calcium Level 8.9 mg/dL (8.7-10.4) Total Bilirubin 1.1 mg/dL (0.2-1.0) Aspartate Amino Transferase (AST) 30 U/L (13-40) Alanine Aminotransferase (ALT) 55 U/L (7-40) Alkaline Phosphatase 79 U/L (46-116) Total Protein 6.8 g/dL (5.7-8.2) Albumin 4.0 g/dL (3.2-4.8) Prothrombin Time 10.7 sec (9.3-11.8) Prothrombin Time INR 1.01 (0.9-1.15) C-Reactive Protein High Sensitivity 2.03 mg/dL (<1.0) Tumor Marker Alpha Fetoprotein 135.0 ng/mL (0.0-6.9) Beta HCG, Quantitative 79.0 mIU/mL (0-2) Urine Color Yellow (Yellow) Urine Clarity Turbid (Clear) Urine pH 6.0 (5.0-9.0) Urine Specific [place] 1.026 (1.001-1.035) Urine Protein Trace (Negative) Urine Ketones Negative (Negative) Urine Blood Negative /uL (Negative) Urine Nitrite Negative (Negative) Urine Bilirubin Negative (Negative) Urine Urobilinogen 6 mg/dL (Negative) Urine Leukocyte Esterase Negative /uL (Negative) Urine RBC 4 /hpf (0 - 3) Urine WBC 4 /hpf (0 - 3) Urine Squamous Epithelial Cells Few /hpf (<5) Urine Bacteria None seen /hpf (None Seen) Urine Mucus Few (None Seen) Urine Glucose Normal mg/dL (Normal) Other Laboratory Tests 03/11/24 06:12 Brief Hx & Hospital Course: 33 yo M with testicular mass, AFP 135 and HCG positive, urology saw and did R radical orchiectomy. Stable to discharge home post op Condition at Discharge: Good Final Diagnosis/Problems List Right testicular mass leukocytosis Discharge Disposition: Home Discharge Instruct/Medications Diet: Regular Activity: No Restrictions, As Tolerated Follow Up/Referral: Urology PCP Medications: levofloxacin 10 days motrin tramadol as needed for pain 39 Discharge Statement: "Patient was advised to return to the ER or call 911 if any headaches, dizziness, shortness of breath, chest pain, abdominal pain, bleeding, fevers, or worsening of medical condition. Patient was counseled about treatment plan, medications, possible side effects, patientverbalized understanding. All questions were answered to the best of my ability. This discharge took greater then 30 minutes in planning, reviewing documentation, counseling the patient, and discussing with other team members." ASSESSMENT ASSESSMENT Assessment Right testicular mass Date of Service: Mar 11, 2024 Billing Provider: ALEJO BAY MD Common Visit Codes: 44016-HDU/OBS DISCH DAY >30min ALEJO BAY MD Mar 11, 2024 14:06
== END 2024-03-11 18:10 | disposition home or self-care (01) | DRG 711 ==
LOC: ER 12:25 → OVERFLOW 16:41 → WEST WING 21:45
PROC: 0VB90ZZ Excision of Right Testis, Open Approach (ICD-10-PCS; principal; 2024-03-11 07:23)
DX: N50.89 Other specified disorders of the male genital organs (principal); Z68.43 Body mass index [BMI] 50.0-59.9, adult; D72.829 Elevated white blood cell count, unspecified; E66.9 Obesity, unspecified; K76.0 Fatty (change of) liver, not elsewhere classified; N20.0 Calculus of kidney; Z79.899 Other long term (current) drug therapy
CPT/HCPCS: 36415; 74176; 76870; 80048; 80053; 81001; 82105; 84702; 85025; 85610; 86141; G0378; J0330; J1100; J1885; J2250; J2405